=== PATIENT | male | born 1955 | race Asian ===

== ENCOUNTER 2018-06-29 02:26 | Emergency (ER) | payer OTHER ==
[2018-06-29 03:19] VITALS: BP 116/68; PULSE 86; TEMP 97.7; BMI 26.9
--- NOTE | 2018-06-29 03:28 | PDOC ---
Attending Attestation - Resident Resident Name: Elton Fernandez - ED Attending Attestation I have performed the following: I have examined & evaluated the patient, The case was reviewed & discussed with the resident, I agree w/resident's findings & plan - HPI HPI: 06/29/18 20:56 Pt tripped and fell. He has some facial injury and head injury. Wants to get checked out. - Physicial Exam PE: 06/29/18 20:56 Agree with resident exam. - Medical Decision Making 06/29/18 05:18 Patient Name: PIETER FLEMING THIS IS A PRELIMINARY REPORT FROM [facility] DATE OF SERVICE: 2018-06-29 03:47:22 IMAGES: [id number] EXAM: CT FACIAL BONES WITHOUT INTRAVENOUS CONTRAST. HISTORY: Status post fall. COMPARISON: None. FINDINGS: 1. There is no acute fracture deformity or acute dislocation. 2. The orbital rowe are intact. The orbital contents are preserved.. No post- septal process is evident. Normal configuration of bilateral ocular globes which demonstrate thin bilateral ocular lenses. 3. Bilateral maxillary sinus disease. 4. Paranasal soft tissue thickening. __ 06/29/18 05:18 Patient Name: PIETER FLEMING THIS IS A PRELIMINARY REPORT FROM [facility] DATE OF SERVICE: 2018-06-29 03:44:07 IMAGES: [id number] EXAM: CT BRAIN WITHOUT INTRAVENOUS CONTRAST. HISTORY: Status post fall. COMPARISON: None. FINDINGS: 1. There is no intracranial bleed,, extra-axial fluid collection, mass effect, midline shift, hydrocephalus, acute territorial infarct or depressed skull fracture 06/29/18 20:56 Stable for discharge.
[2018-06-29] MEDS ORDERED: DIPHTH,PERTUSS(ACELL),TET 0.5 ML DISP.SYRIN IM ONE ×2 (03:57→04:19)
--- NOTE | 2018-06-29 03:57 | PDOC ---
History of Present Illness - General Chief Complaint: Nasal Bleeding Stated Complaint: FALL/NOSEBLEED Time Seen by Provider: 06/29/18 03:13 History Source: Patient, Family Exam Limitations: No Limitations - History of Present Illness Initial Comments: 06/29/18 03:45 63 yo male pmh HTN, HLD, CAD with stents (on ASA and plavix, most recent stent 7 years ago) presents to the ED after fall. Pt states he fell asleep resting on on a table and accidentally fell and hit his nasal bridge leading to pain, swelling and minor laceration to the affected area. Denies CP, palpitations, SOB prior to or after the fall. Denies ODELL, changes in vision or speech, weakness /sensory deficits on 1 side, N/V/F/C. Pt states the bleeding over the bridge of the nose has not stopped. Last tetanus over 10 years Past History - Past Medical History Allergies/Adverse Reactions: Allergies Allergy/AdvReac Type Severity Reaction Status Date / Time No Known Allergies Allergy Verified 10/14/14 22:41 Home Medications: Ambulatory Orders Aspirin [ASA -] 81 mg PO DAILY 12/29/13 Atorvastatin Ca [Lipitor] 10 mg PO HS 12/29/13 Citalopram Hydrobromide [Celexa -] 20 mg PO DAILY 12/29/13 Imipramine HCl 25 mg PO DAILY 12/29/13 Pramipexole Dihydrochloride [Mirapex -] 0.5 mg PO DAILY 12/29/13 Ranolazine [Ranexa] 1,000 mg PO BID 12/29/13 Canagliflozin [Invokana] 100 mg PO DAILY 10/14/14 Clopidogrel Bisulfate [Plavix -] 75 mg PO DAILY 10/14/14 Glyburide 5 mg PO DAILY 10/14/14 metFORMIN HCL [Glucophage] 1,000 mg PO BID 10/14/14 Carvedilol [Coreg -] 12.5 mg PO BID #60 tablet 10/16/14 Anemia: Yes Cardiac Disorders: Yes (SENTS X2) CVA: Yes (CVA 2012) COPD: No Diabetes: Yes GI Disorders: Yes (CONSTIPATION) HTN: Yes Hypercholesterolemia: Yes Psychiatric Problems: Yes (depression) Thyroid Disease: Yes - Surgical History Cardiac Surgery: Yes (stent x 2) - Suicide/Smoking/Psychosocial Hx Smoking History: Never smoked Have you smoked in the past 12 months: No Number of Cigarettes Smoked Daily: 0 If you are a former smoker, when did you quit?: 20 YEARS AGO Hx Alcohol Use: No Drug/Substance Use Hx: No Substance Use Type: None Hx Substance Use Treatment: No *Physical Exam - Vital Signs Last Vital Signs Temp Pulse Resp BP Pulse Ox 97.7 F 86 19 116/68 97 06/29/18 02:45 06/29/18 02:45 06/29/18 02:45 06/29/18 02:45 06/29/18 02:45 ED Treatment Course - RADIOLOGY Radiology Studies Ordered: Category Date Time Status FACIAL BONES CT W/O CONTRAST [CT] Stat CT Scan 06/29/18 03:[address] WITHOUT CONTRAST [CT] Stat CT Scan 06/29/18 03:14 Ordered *DC/Admit/Observation/Transfer Diagnosis at time of Disposition: Fall - Discharge Dispostion Disposition: HOME Condition at time of disposition: Stable Decision to Admit order: No - Referrals Referrals: Ajay Crawford MD [Primary Care Provider] - - Patient Instructions Printed Discharge Instructions: How to Prevent Falls Additional Instructions: Please see your Primary Doctor within the next 48 hours and discuss the right bundle branch block seen on your EKG. Continue taking your home dosed medications as prescribed. Return to the ER for new or concerning symptoms including but not limited to: headaches, changes in vision or speech, weakness or numbness on 1 side of your body, continued bleeding. Thank you - Post Discharge Activity
--- NOTE | 2018-06-29 08:54 | EKG ---
Test Reason : Blood Pressure : / mmHG Vent. Rate : 068 BPM Atrial Rate : 068 BPM P-R Int : 148 ms QRS Dur : 118 ms QT Int : 406 ms P-R-T Axes : 033 023 044 degrees QTc Int : 431 ms SINUS RHYTHM WITH FUSION COMPLEXES RIGHT BUNDLE BRANCH BLOCK ABNORMAL ECG WHEN COMPARED WITH ECG OF 14-OCT-2014 22:36, FUSION COMPLEXES ARE NOW PRESENT RIGHT BUNDLE BRANCH BLOCK IS NOW PRESENT Confirmed by ERICKA GUNTER, ELAINE ([id number]) on 06/29/2018 8:53:35 AM Referred By: Confirmed By:ELAINE BARNETT MD
== END 2018-06-29 05:51 | disposition home or self-care (01) ==
LOC: JER 02:26
PROC: 3E0234Z Introduction of Serum, Toxoid and Vaccine into Muscle, Percutaneous Approach (ICD-10-PCS; principal; 2018-06-29)
DX: S01.21XA Laceration without foreign body of nose, initial encounter (principal); S09.8XXA Other specified injuries of head, initial encounter; S09.92XA Unspecified injury of nose, initial encounter; W18.30XA Fall on same level, unspecified, initial encounter; Y93.89 Activity, other specified; Y92.038 Other place in apartment as the place of occurrence of the external cause; Y99.8 Other external cause status; I25.10 Atherosclerotic heart disease of native coronary artery without angina pectoris; I10 Essential (primary) hypertension; Z95.5 Presence of coronary angioplasty implant and graft; Z79.01 Long term (current) use of anticoagulants; E11.9 Type 2 diabetes mellitus without complications; Z79.84 Long term (current) use of oral hypoglycemic drugs; E78.00 Pure hypercholesterolemia, unspecified; F32.9 Major depressive disorder, single episode, unspecified; Z86.73 Personal history of transient ischemic attack (TIA), and cerebral infarction without residual deficits
CPT/HCPCS: 70450-TC; 70486-TC; 90715; 93005; 93010; 99281-25

== ENCOUNTER 2018-10-10 13:23 | Emergency (ER) | payer OTHER ==
[2018-10-10 13:31] VITALS: BMI 30.9
--- NOTE | 2018-10-10 13:47 | PDOC ---
History of Present Illness - General Chief Complaint: Constipation Stated Complaint: SENT BY PCP/CONSTIPATION/VOMITING Time Seen by Provider: 10/10/18 13:46 Past History - Past Medical History Allergies/Adverse Reactions: Allergies Allergy/AdvReac Type Severity Reaction Status Date / Time No Known Allergies Allergy Verified 10/14/14 22:41 Home Medications: Ambulatory Orders Aspirin [ASA -] 81 mg PO DAILY 12/29/13 Atorvastatin Ca [Lipitor] 10 mg PO HS 12/29/13 Citalopram Hydrobromide [Celexa -] 20 mg PO DAILY 12/29/13 Imipramine HCl 25 mg PO DAILY 12/29/13 Pramipexole Dihydrochloride [Mirapex -] 0.5 mg PO DAILY 12/29/13 Ranolazine [Ranexa] 1,000 mg PO BID 12/29/13 Canagliflozin [Invokana] 100 mg PO DAILY 10/14/14 Clopidogrel Bisulfate [Plavix -] 75 mg PO DAILY 10/14/14 Glyburide 5 mg PO DAILY 10/14/14 metFORMIN HCL [Glucophage] 1,000 mg PO BID 10/14/14 Carvedilol [Coreg -] 12.5 mg PO BID #60 tablet 10/16/14 Anemia: Yes Cardiac Disorders: Yes (SENTS X2) CVA: Yes (CVA 2012) COPD: No Diabetes: Yes GI Disorders: Yes (CONSTIPATION) HTN: Yes Hypercholesterolemia: Yes Psychiatric Problems: Yes (depression) Thyroid Disease: Yes - Surgical History Cardiac Surgery: Yes (stent x 2) - Suicide/Smoking/Psychosocial Hx Smoking History: Never smoked Have you smoked in the past 12 months: No Number of Cigarettes Smoked Daily: 0 If you are a former smoker, when did you quit?: 20 YEARS AGO Hx Alcohol Use: No Drug/Substance Use Hx: No Substance Use Type: None Hx Substance Use Treatment: No *Physical Exam - Vital Signs Last Vital Signs Temp Pulse Resp BP Pulse Ox 98.2 F 66 19 104/68 100 10/10/18 13:28 10/10/18 13:28 10/10/18 13:28 10/10/18 13:28 10/10/18 13:28
--- NOTE | 2018-10-10 13:55 | PDOC ---
History of Present Illness - General Chief Complaint: Constipation Stated Complaint: SENT BY PCP/CONSTIPATION/VOMITING Time Seen by Provider: 10/10/18 13:46 History Source: Patient - History of Present Illness Timing/Duration: reports: getting worse Past History - Past Medical History Allergies/Adverse Reactions: Allergies Allergy/AdvReac Type Severity Reaction Status Date / Time No Known Allergies Allergy Verified 10/14/14 22:41 Home Medications: Ambulatory Orders Aspirin [ASA -] 81 mg PO DAILY 12/29/13 Atorvastatin Ca [Lipitor] 10 mg PO HS 12/29/13 Citalopram Hydrobromide [Celexa -] 20 mg PO DAILY 12/29/13 Imipramine HCl 25 mg PO DAILY 12/29/13 Pramipexole Dihydrochloride [Mirapex -] 0.5 mg PO DAILY 12/29/13 Ranolazine [Ranexa] 1,000 mg PO BID 12/29/13 Canagliflozin [Invokana] 100 mg PO DAILY 10/14/14 Clopidogrel Bisulfate [Plavix -] 75 mg PO DAILY 10/14/14 Glyburide 5 mg PO DAILY 10/14/14 metFORMIN HCL [Glucophage] 1,000 mg PO BID 10/14/14 Carvedilol [Coreg -] 12.5 mg PO BID #60 tablet 10/16/14 Anemia: Yes Cardiac Disorders: Yes (SENTS X2) CVA: Yes (CVA 2012) COPD: No Diabetes: Yes GI Disorders: Yes (CONSTIPATION) HTN: Yes Hypercholesterolemia: Yes Psychiatric Problems: Yes (depression) Thyroid Disease: Yes - Surgical History Cardiac Surgery: Yes (stent x 2) - Suicide/Smoking/Psychosocial Hx Smoking History: Never smoked Have you smoked in the past 12 months: No Number of Cigarettes Smoked Daily: 0 If you are a former smoker, when did you quit?: 20 YEARS AGO Hx Alcohol Use: No Drug/Substance Use Hx: No Substance Use Type: None Hx Substance Use Treatment: No Review of Systems - Review of Systems Constitutional: No: Fever ABD/GI: Yes: Constipated, Abdominal cramping. No: Blood Streaked Bowels, Diarrhea, Nausea, Rectal Bleeding, Vomiting, Tarry Stools : No: Dysuria *Physical Exam - Vital Signs Last Vital Signs Temp Pulse Resp BP Pulse Ox 98.2 F 66 19 104/68 100 10/10/18 13:28 10/10/18 13:28 10/10/18 13:28 10/10/18 13:28 10/10/18 13:28 - Physical Exam General Appearance: Yes: Appropriately Dressed. No: Apparent Distress HEENT: positive: Normal Voice Neck: positive: Supple Respiratory/Chest: negative: Respiratory Distress Gastrointestinal/Abdominal: positive: Normal Bowel Sounds, Tender, Soft. negative: Distended, Guarding, Rebound Rectal Exam: positive: normal rectal tone, other (no impaction, no stool in vault). negative: hemorrhoids Musculoskeletal: negative: CVA Tenderness Integumentary: positive: Dry, Warm Neurologic: positive: Fully Oriented, Alert, Normal Mood/Affect ED Treatment Course - LABORATORY CBC & Chemistry Diagram: 10/10/18 14:18 10/10/18 14:18 Medical Decision Making - Medical Decision Making 10/10/18 13:50 63 yo male, h/o HTN, HLD, CAD with stents (on ASA and plavix, most recent stent 7 years ago), BIB son after outside PMD sent pt in for constipation. Pt states constipation started 1 month ago with pt having ~1 BM/week, now worse. Took enema x 2 and dulcolax over past week w/ very small BMs. Now w/ diffuse abd pain. No BBPR, n/v/f/c. No new meds. Not taking narcotics. Was on iron but taken off > 1 month ago. Last colonoscopy was 2-3 yrs ago that was normal. see exam Constipation No new meds Nl scope 2-3 yrs ago Abd mildly tender diffusely w/ no impaction or rectal exam -IVF -labs -CT -dispo pending 10/10/18 15:35 Pt signed out to AUDREY Doherty pending labs and CT pending
[2018-10-10] MEDS ORDERED: SODIUM CHLORIDE 1,000 ML IV STA (14:00)
[2018-10-10 14:57] LABS: BASO % 1.1 % (0-2.0); EOS % 4.6 % (0-4.5); HEMATOCRIT 39.4 % (35.4-49); HEMOGLOBIN 13.2 GM/dL (11.7-16.9); LYMPH % 33.9 % (8-40); MCHC 33.5 g/dl (32.0-35.9); MEAN CELL VOLUME 92.3 fl (80-96); MEAN PLT VOLUME 8.1 fl (7.5-11.1); MONO % 7.6 % (3.8-10.2); NEUT % 52.8 % (42.8-82.8); PLATELET COUNT 225 K/MM3 (134-434); RBC 4.26 M/mm3 (4.00-5.60); RDW 14.2 % (11.9-15.9); WHITE BLOOD COUNT 6.3 K/mm3 (4.0-10.0)
[2018-10-10 15:13] LABS: ALBUMIN 4.2 g/dl (3.4-5.0); ALK PHOS 58 U/L (45-117); ANION GAP 7 MMOL/L (8-16); BILIRUBIN,TOTAL 0.5 mg/dL (0.2-1); BLOOD UREA NITROGEN 16.6 mg/dL (7-18); CALCIUM 9.6 mg/dL (8.5-10.1); CHLORIDE 99 mmol/L (98-107); CO2 29 mmol/L (21-32); CREATININE 1.4 mg/dL (0.55-1.3); GLUCOSE,RANDOM 125 mg/dL (74-106); POTASSIUM 5.6 mmol/L (3.5-5.1); SGOT/AST 27 U/L (15-37); SGPT/ALT 30 U/L (13-61); SODIUM 135 mmol/L (136-145); TOT PROT 7.6 g/dl (6.4-8.2)
[2018-10-10 16:32] LABS: PH,URINE 7.5 (5.0-8.0); URINE APPEARANCE CLEAR; URINE BILIRUBIN NEGATIVE (NEGATIVE); URINE COLOR YELLOW; URINE GLUCOSE (UA) 3+ (NEGATIVE); URINE KETONE NEGATIVE (NEGATIVE); URINE LEUK ESTERASE NEGATIVE (NEGATIVE); URINE NITRITE NEGATIVE (NEGATIVE); URINE PROTEIN NEGATIVE (NEGATIVE); URINE UROBILINOGEN 0.2 mg/dL (0.2-1.0)
--- NOTE | 2018-10-10 17:12 | PDOC ---
*Physical Exam - Vital Signs Last Vital Signs Temp Pulse Resp BP Pulse Ox 98.2 F 66 19 104/68 100 10/10/18 13:28 10/10/18 13:28 10/10/18 13:28 10/10/18 13:28 10/10/18 13:28 ED Treatment Course - LABORATORY CBC & Chemistry Diagram: 10/10/18 14:18 10/10/18 14:18 - ADDITIONAL ORDERS Additional order review: Laboratory Results 10/10/18 10/10/18 15:40 14:18 Sodium 135 L Potassium 5.6 H Chloride 99 Carbon Dioxide 29 Anion Gap 7 L BUN 16.6 Creatinine 1.4 H Est GFR (CKD-EPI)AfAm 61.10 Est GFR (CKD-EPI)NonAf 52.72 Random Glucose 125 H Calcium 9.6 Total Bilirubin 0.5 AST 27 ALT 30 Alkaline Phosphatase 58 Creatine Kinase 107 Troponin I < 0.02 Total Protein 7.6 Albumin 4.2 Urine Color Yellow Urine Appearance Clear Urine pH 7.5 Ur Specific [place] 1.021 Urine Protein Negative Urine Glucose (UA) 3+ H Urine Ketones Negative Urine Blood Negative Urine Nitrite Negative Urine Bilirubin Negative Urine Urobilinogen 0.2 Ur Leukocyte Esterase Negative 10/10/18 14:18 RBC 4.26 MCV 92.3 MCHC 33.5 RDW 14.2 D MPV 8.1 D Neutrophils % 52.8 Lymphocytes % 33.9 Monocytes % 7.6 Eosinophils % 4.6 H Basophils % 1.1 - Medications Given in the ED: ED Medications Discontinued Medications Generic Name Dose Route Start Last Admin Trade Name Freq PRN Reason Stop Dose Admin Sodium Chloride 1,000 mls @ 1,000 mls/hr 10/10/18 14:00 10/10/18 14:55 Normal Saline - IV 10/10/18 14:59 1,000 mls/hr ASDIR STA Administration Medical Decision Making - Medical Decision Making 10/10/18 18:00 CTAP: renal cyst discussed with patient; fecal retention miralax; magnesium citrate *DC/Admit/Observation/Transfer Diagnosis at time of Disposition: Constipation Qualifiers: Constipation type: unspecified constipation type Qualified Code(s): K59.00 - Constipation, unspecified Abdominal pain Qualifiers: Abdominal location: generalized Qualified Code(s): R10.84 - Generalized abdominal pain - Discharge Dispostion Disposition: HOME - Prescriptions Prescriptions: Magnesium Citrate [Citroma -] 195 ml PO ONCE #1 bottle Polyethylene Glycol 3350 [Miralax (For Daily Use) -] 17 gm PO DAILY #1 bottle - Referrals Referrals: Emiliana Mccormick DO [Staff Physician] - Call tomorrow - Patient Instructions Printed Discharge Instructions: DI for Abdominal Pain-Adult Additional Instructions: drink plenty of fluids take magnesium citrate x 1 once you get home take miralax once daily. follow up with your doctor as soon as possible. - Post Discharge Activity Forms/Work/School Notes: Back to Work
[2018-10-10 18:39] VITALS: BP 136/78; PULSE 88; TEMP 98.5
--- NOTE | 2018-10-10 18:44 | PDOC ---
*Physical Exam - Vital Signs Last Vital Signs Temp Pulse Resp BP Pulse Ox 98.5 F 88 19 136/78 99 10/10/18 18:38 10/10/18 18:38 10/10/18 18:38 10/10/18 18:38 10/10/18 18:38 ED Treatment Course - LABORATORY CBC & Chemistry Diagram: 10/10/18 14:18 10/10/18 14:18 - ADDITIONAL ORDERS Additional order review: Laboratory Results 10/10/18 10/10/18 15:40 14:18 Sodium 135 L Potassium 5.6 H Chloride 99 Carbon Dioxide 29 Anion Gap 7 L BUN 16.6 Creatinine 1.4 H Est GFR (CKD-EPI)AfAm 61.10 Est GFR (CKD-EPI)NonAf 52.72 Random Glucose 125 H Calcium 9.6 Total Bilirubin 0.5 AST 27 ALT 30 Alkaline Phosphatase 58 Creatine Kinase 107 Troponin I < 0.02 Total Protein 7.6 Albumin 4.2 Urine Color Yellow Urine Appearance Clear Urine pH 7.5 Ur Specific [place] 1.021 Urine Protein Negative Urine Glucose (UA) 3+ H Urine Ketones Negative Urine Blood Negative Urine Nitrite Negative Urine Bilirubin Negative Urine Urobilinogen 0.2 Ur Leukocyte Esterase Negative 10/10/18 14:18 RBC 4.26 MCV 92.3 MCHC 33.5 RDW 14.2 D MPV 8.1 D Neutrophils % 52.8 Lymphocytes % 33.9 Monocytes % 7.6 Eosinophils % 4.6 H Basophils % 1.1 - Medications Given in the ED: ED Medications Discontinued Medications Generic Name Dose Route Start Last Admin Trade Name Freq PRN Reason Stop Dose Admin Sodium Chloride 1,000 mls @ 1,000 mls/hr 10/10/18 14:00 10/10/18 14:55 Normal Saline - IV 10/10/18 14:59 1,000 mls/hr ASDIR STA Administration Medical Decision Making - Medical Decision Making 10/10/18 18:43 Pt seen by Midlevel Provider under my direct supervision Pt interviewed and examined Ancillary studies reviewed I agree with plan as outlined by Midlevel Provider EKG - Twelve-lead EKG was performed and reviewed by me. There is normal sinus rhythm with a normal rate. The axis is normal. The intervals are normal. There are no ST or T wave abnormalities. Impression: Normal twelve-lead EKG 10/10/18 18:43 Laboratory Tests 10/10/18 10/10/18 14:18 14:18 WBC 6.3 Hgb 13.2 Hct 39.4 Plt Count 225 BUN 16.6 Creatinine 1.4 H Creatine Kinase 107 Troponin I < 0.02 10/10/18 18:44 CT consistent with constipation *DC/Admit/Observation/Transfer Diagnosis at time of Disposition: Constipation Qualifiers: Constipation type: unspecified constipation type Qualified Code(s): K59.00 - Constipation, unspecified Abdominal pain Qualifiers: Abdominal location: generalized Qualified Code(s): R10.84 - Generalized abdominal pain - Discharge Dispostion Disposition: HOME Condition at time of disposition: Stable - Prescriptions Prescriptions: Magnesium Citrate [Citroma -] 195 ml PO ONCE #1 bottle Polyethylene Glycol 3350 [Miralax (For Daily Use) -] 17 gm PO DAILY #1 bottle - Referrals Referrals: Emiliana Mccormick DO [Staff Physician] - Call tomorrow - Patient Instructions Printed Discharge Instructions: DI for Abdominal Pain-Adult Additional Instructions: drink plenty of fluids take magnesium citrate x 1 once you get home take miralax once daily. follow up with your doctor as soon as possible. - Post Discharge Activity Forms/Work/School Notes: Back to Work
--- NOTE | 2018-10-12 11:40 | EKG ---
Test Reason : Blood Pressure : / mmHG Vent. Rate : 062 BPM Atrial Rate : 062 BPM P-R Int : 152 ms QRS Dur : 090 ms QT Int : 422 ms P-R-T Axes : 044 047 061 degrees QTc Int : 428 ms NORMAL SINUS RHYTHM NORMAL ECG WHEN COMPARED WITH ECG OF 29-JUN-2018 04:02, FUSION COMPLEXES ARE NO LONGER PRESENT RIGHT BUNDLE BRANCH BLOCK IS NO LONGER PRESENT Confirmed by ARTEMIO GUNTER, EMILY ([id number]) on 10/12/2018 11:40:10 AM Referred By: Confirmed By:EMILY ULLOA MD
== END 2018-10-10 18:39 | disposition home or self-care (01) ==
LOC: JER 13:23
PROC: 3E0337Z Introduction of Electrolytic and Water Balance Substance into Peripheral Vein, Percutaneous Approach (ICD-10-PCS; principal; 2018-10-10)
DX: K59.00 Constipation, unspecified (principal); R10.84 Generalized abdominal pain; Z87.891 Personal history of nicotine dependence; F32.9 Major depressive disorder, single episode, unspecified; Z86.73 Personal history of transient ischemic attack (TIA), and cerebral infarction without residual deficits; Z95.5 Presence of coronary angioplasty implant and graft; E11.9 Type 2 diabetes mellitus without complications
CPT/HCPCS: 36415; 74176-TC; 80053; 81003; 82550; 84484; 85025; 93005; 93010; 99283-25; J7030

== ENCOUNTER 2020-05-17 21:46 | Inpatient (IN) | payer OTHER ==
[2020-05-17 21:51] VITALS: BMI 27.1
[2020-05-18 01:04] LABS: BASO % 0.7 % (0-2.0); EOS % 5.8 % (0-4.5); HEMATOCRIT 20.3 % (35.4-49); MCH 21.1 pg (25.7-33.7); MCHC 30.6 g/dl (32.0-35.9); MONO % 11.4 % (3.8-10.2); NEUT % 49.1 % (42.8-82.8); PLATELET COUNT 272 K/MM3 (134-434); RBC 2.93 M/mm3 (4.00-5.60); RDW 17.7 % (11.9-15.9); WHITE BLOOD COUNT 5.5 K/mm3 (4.0-10.0)
[2020-05-18 01:13] LABS: INR 1.03 (0.83-1.09); PROTHROMBIN TIME (PATIENT) 12.7 SEC (9.7-13.0)
[2020-05-18 01:15] LABS: ACTIVATED PTT 34.3 SECONDS (25.2-36.5)
[2020-05-18 01:18] LABS: HEMOGLOBIN 6.2 GM/dL (11.7-16.9)
[2020-05-18 01:29] LABS: POTASSIUM 4.8 mmol/L (3.5-5.1)
[2020-05-18 01:31] LABS: ALBUMIN 4.1 g/dl (3.4-5.0); BLOOD UREA NITROGEN 28.3 mg/dL (7-18); CALCIUM 9.1 mg/dL (8.5-10.1)
[2020-05-18 01:35] LABS: CREATININE 1.7 mg/dL (0.55-1.3)
[2020-05-18 01:36] LABS: BILIRUBIN,TOTAL 0.2 mg/dL (0.2-1); TOT PROT 7.3 g/dl (6.4-8.2)
[2020-05-18 01:40] LABS: N-TERMINAL BNP 356.5 pg/ml (5-125)
[2020-05-18 05:08] LABS: ANISOCYTOSIS 2+; MACROCYTOSIS 2+; PLATELET ESTIMATE NORMAL
[2020-05-18 05:36] LABS: URINE APPEARANCE CLEAR; URINE BILIRUBIN NEGATIVE (NEGATIVE); URINE COLOR YELLOW; URINE GLUCOSE (UA) 1+ (NEGATIVE); URINE KETONE NEGATIVE (NEGATIVE); URINE LEUK ESTERASE NEGATIVE (NEGATIVE); URINE NITRITE NEGATIVE (NEGATIVE); URINE PROTEIN NEGATIVE (NEGATIVE); URINE UROBILINOGEN 0.2 mg/dL (0.2-1.0)
[2020-05-18] MEDS ORDERED: PANTOPRAZOLE SODIUM 40 MG/100 ML BAG IVPB ONE (06:29)
[2020-05-18] MEDS: PANTOPRAZOLE SODIUM 40 MG VIAL IVPUSH SCH ×2 (06:48→11:51)
[2020-05-18 06:51] LABS: MAGNESIUM 2.1 mg/dL (1.8-2.4)
[2020-05-18 06:54] LABS: IRON SERUM 13 ug/dL (50-175); PHOSPHOROUS 3.2 mg/dL (2.5-4.9)
[2020-05-18 06:55] LABS: TOTAL IRON BINDING CAPACITY 473 ug/dL (250-450)
[2020-05-18] MEDS: INSULIN SLIDING SCALE (NOVOLOG) 1 VIAL SQ SCH ×3 (07:20→16:03)
[2020-05-18 08:55] LABS: BASO % 0.8 % (0-2.0); EOS % 4.5 % (0-4.5); HEMATOCRIT 25.7 % (35.4-49); HEMOGLOBIN 8.2 GM/dL (11.7-16.9); MCH 23.1 pg (25.7-33.7); MEAN CELL VOLUME 72.3 fl (80-96); MEAN PLT VOLUME 7.9 fl (7.5-11.1); MONO % 7.4 % (3.8-10.2); NEUT % 64.3 % (42.8-82.8); PLATELET COUNT 269 K/MM3 (134-434); RBC 3.56 M/mm3 (4.00-5.60); RDW 21.3 % (11.9-15.9); WHITE BLOOD COUNT 7.6 K/mm3 (4.0-10.0)
[2020-05-18 09:16] LABS: PHOSPHOROUS 3.7 mg/dL (2.5-4.9)
[2020-05-18] MEDS ORDERED: RANOLAZINE E.R. 1,000 MG TABLET (FP) PO SCH (10:00)
[2020-05-18] MEDS ORDERED: CARVEDILOL 12.5 MG TABLET (FP) PO SCH ×2 (10:00)
[2020-05-18 16:45] VITALS: BP 132/87; PULSE 61; TEMP 97.4
== END 2020-05-18 17:01 | disposition home or self-care (01) | DRG 812 ==
LOC: JER 21:46 → JERBED 05-18 05:05 → J6WEST-2 05-18 11:06
PROVIDERS: ADMIT Internal Medicine; ATTEND Internal Medicine
PROC: 30233N1 Transfusion of Nonautologous Red Blood Cells into Peripheral Vein, Percutaneous Approach (ICD-10-PCS; principal; 2020-05-18)
DX: D50.9 Iron deficiency anemia, unspecified (principal); N17.9 Acute kidney failure, unspecified; R04.2 Hemoptysis; R55 Syncope and collapse; K59.00 Constipation, unspecified; E11.9 Type 2 diabetes mellitus without complications; E78.5 Hyperlipidemia, unspecified
CPT/HCPCS: 36415; 36430; 36511; 70450-TC; 71046-TC-FY; 71250-TC; 72125-TC; 74176-TC; 76775-TC; 80053; 81003; 82550; 82728; 82962; 83540; 83550; 83735; 83880; 84100; 84484; 85025; 85027; 85379; 85610; 85730; 86850; 86900; 86901; 86922; 87086; 87804; 93005; 93010; 99285-25; C9803; P9038; P9058; U0003